=== PATIENT | male | born 2000 | race African-American/Black ===

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

== ENCOUNTER → 2019-01-17 | Outpatient (CLI) | payer OTHER ==
--- NOTE | 2019-01-17 13:48 | Diagnostic Imaging Report ---
INDICATION: Followup fracture. COMPARISON: 12/27/2018 FINDINGS: Multiple radiographic views of the left thumb were again obtained. Again identified is nonacute fracture involving the medial proximal margins of the first proximal phalanx. Fracture fragment is in stable position. Fracture line is somewhat less conspicuous, which may be on the basis of partial interval healing. Note is again made of intra-articular extension. No new acute fracture or dislocation of left thumb is identified. Joint spaces are maintained. No unexpected radiopaque foreign bodies are seen. IMPRESSION: 1. Redemonstration of nonacute fracture involving the proximal margins of the first proximal phalanx as described above. Dictated by: Dictated on workstation # [id number]
== END ==
LOC: RAD FS 12:58
PROVIDERS: ATTEND Nurse Practitioner
DX: S53.32XD Traumatic rupture of left ulnar collateral ligament, subsequent encounter (principal); X58.XXXD Exposure to other specified factors, subsequent encounter
CPT/HCPCS: 73140

== ENCOUNTER → 2019-02-16 | Outpatient (CLI) | payer OTHER ==
--- NOTE | 2019-02-16 14:04 | Diagnostic Imaging Report ---
INDICATION: Follow-up injury. COMPARISON: 01/17/2019 FINDINGS: Four radiographic views of the left thumb were obtained and again demonstrate nonacute oblique oriented fracture extending through the medial proximal margins of the first proximal phalanx. There is intra-articular extension. No significant displacement of the fracture fragments is seen. Fracture line remains conspicuous without significant callus formation. No new acute deformity of the left thumb is identified. No unexpected radiopaque foreign bodies are seen. IMPRESSION: 1. Stable nonacute fracture of the first proximal phalanx as described above. Dictated by: Dictated on workstation # [id number]
== END ==
LOC: RAD FS 13:20
PROVIDERS: ATTEND Nurse Practitioner
DX: S62.512D Displaced fracture of proximal phalanx of left thumb, subsequent encounter for fracture with routine healing (principal); S53.32XD Traumatic rupture of left ulnar collateral ligament, subsequent encounter; X58.XXXD Exposure to other specified factors, subsequent encounter
CPT/HCPCS: 73140